=== PATIENT | female | born 1955 | race Caucasian/White ===

== ENCOUNTER → 2017-02-05 09:43 | Outpatient (CLI) | payer OTHER ==
[2012-10-01 08:28] VITALS: BMI 38.6
[2017-02-06 09:15] LABS: IMMUNOGLOBULIN E 220 IU/mL (0-100)
[2017-02-06 10:18] LABS: IMMUNOGLOBULIN A 524 mg/dL (87-352); IMMUNOGLOBULIN M 83 mg/dL (26-217)
== END | disposition home or self-care (01) ==
LOC: D.LABREF 09:43
PROVIDERS: Internal Medicine Pulmonary Disease
DX: R06.00 Dyspnea, unspecified (principal)

== ENCOUNTER → 2019-06-13 07:22 | Outpatient (CLI) | payer OTHER ==
[2012-10-01 08:28] VITALS: BMI 38.6
== END | disposition home or self-care (01) ==
LOC: D.RT 01-24 08:00 → D.RAD 01-24 09:00 → D.RT 03-21 08:00
PROVIDERS: ATTEND Internal Medicine Pulmonary Disease
DX: Z12.31 Encounter for screening mammogram for malignant neoplasm of breast (principal); J45.909 Unspecified asthma, uncomplicated